=== PATIENT | female | born 1950 | race Caucasian/White ===

== ENCOUNTER 2017-06-13 10:17 | Inpatient (IN) | payer OTHER ==
[~2017-06-13] VITALS: Ht 177.8 cm; Wt 226.8 kg
[~2017-06-13 10:17] MED LIST: ATENOLOL50 MG; CLOTRIMAZOLE-BE15 G1 TOP; COZAAR100 MG; FUROSEMIDE20 MG; FUROSEMIDE20 MG PO; Glucophage PO; LEVAQUIN750 MG PO; LOSARTAN POTASS25 MG PO; MEDROL4 MG PO; METFORMIN HCL500 MG; PRE PROTEIN 2030 ML PO; PROTONIX40 MG; TOPROL XL25 MG PO; TRAM1TAB98 PO; XARELTO20 MG; XARELTO20 MG PO
[2017-06-13] MEDS ORDERED: XOPENEX HFA15 GM (10:52)
[2017-06-29] MEDS ORDERED: PROTEINEX1 TA1 PO (10:17)
[2017-06-29] MEDS ORDERED: TOPROL XL25 M1 PO (10:17)
== END 2017-06-29 14:04 | disposition home or self-care (01) | DRG 190 ==
LOC: ER 10:17 → ICU-2 16:45 → ICU 06-19 13:13 → MEDI 06-24 11:00 → MEDJ 06-24 11:00
PROC: 5A09557 Assistance with Respiratory Ventilation, Greater than 96 Consecutive Hours, Continuous Positive Airway Pressure (ICD-10-PCS; principal; 2017-06-13)
PROC: 3E0F7GC Introduction of Other Therapeutic Substance into Respiratory Tract, Via Natural or Artificial Opening (ICD-10-PCS; 2017-06-13)
PROC: 4A033R1 Measurement of Arterial Saturation, Peripheral, Percutaneous Approach (ICD-10-PCS; 2017-06-13)
PROC: 05H433Z Insertion of Infusion Device into Left Innominate Vein, Percutaneous Approach (ICD-10-PCS; 2017-06-15)
PROC: 4A12X4Z Monitoring of Cardiac Electrical Activity, External Approach (ICD-10-PCS; 2017-06-24)
DX: J44.1 Chronic obstructive pulmonary disease with (acute) exacerbation (principal); J96.02 Acute respiratory failure with hypercapnia; E66.2 Morbid (severe) obesity with alveolar hypoventilation; E11.65 Type 2 diabetes mellitus with hyperglycemia; Z74.01 Bed confinement status; I48.0 Paroxysmal atrial fibrillation; I11.9 Hypertensive heart disease without heart failure; I87.2 Venous insufficiency (chronic) (peripheral); I95.89 Other hypotension; S80.821A Blister (nonthermal), right lower leg, initial encounter

== ENCOUNTER 2017-10-20 13:02 | Emergency (ER) | payer OTHER ==
[~2017-10-20] VITALS: Ht 177.8 cm; Wt 158.8 kg
[~2017-10-20 13:02] MED LIST changes: +PROTEINEX1 TA1 PO; +TOPROL XL25 M1 PO; +XOPENEX HFA15 GM
[2017-10-20] MEDS ORDERED: COZAAR (13:12)
[2017-10-20] MEDS ORDERED: SINGULAIR 10MG10 MG (13:12)
[2017-10-21] MEDS ORDERED: DOXYCYCLINE HY100 M2 PO (08:21)
== END 2017-10-21 13:54 | disposition home or self-care (01) ==
LOC: ER 13:02
DX: L03.116 Cellulitis of left lower limb (principal); L03.115 Cellulitis of right lower limb; M79.602 Pain in left arm

== ENCOUNTER 2017-12-21 13:19 | Emergency (ER) | payer OTHER ==
[~2017-12-21] VITALS: Ht 177.8 cm; Wt 131.5 kg
[~2017-12-21 13:19] MED LIST changes: +COZAAR; +DOXYCYCLINE HY100 M2 PO; +SINGULAIR 10MG10 MG
== END 2017-12-22 09:43 | disposition home or self-care (01) ==
LOC: ER 13:19
DX: J09.X2 Influenza due to identified novel influenza A virus with other respiratory manifestations (principal)

== ENCOUNTER 2018-01-29 12:12 | Inpatient (IN) | payer OTHER ==
[~2018-01-29] VITALS: Ht 177.8 cm; Wt 131.5 kg
--- NOTE | 2018-01-29 12:27 | NUR ---
SE RECIBE PTE EN AMBULANCIA Y REFIERE TENER CELULITIS EN AMBAS PIERNAS DESDE EL JENNIFER Y CON DOLOR DE ESPALDA.
--- NOTE | 2018-01-29 13:35 | NUR ---
MS ROBLES ORIENTA A PACIENTE SOBRE ORDENES MEDICAS. COLECTA MUESTRAS DE LABORATORIO ORDENADAS BAJO MEDIDAS ASEPTICAS. PENDIENTE A RESULTADOS DE LABORATORIO PARA RE-EVALUACION MEDICA.
--- NOTE | 2018-01-29 15:30 | NUR ---
SE RECIBE PTE ALERTA Y ORIENTADA EN LAS 3 ESFERAS EN CAMA CON BARANDAS ELEVADAS POR SEGURIDAD. PTE RESPIRA SIN DIFICULTAD Y NO REFIERE SENTIR DOLOR. H/L, AREA LINDA DE EDEMA Y ERITEMA. PENDIENTE RE-EVALUACION MEDICA.
[2018-02-03] MEDS ORDERED: COZAAR25 MG PO (15:58)
[2018-02-25] MEDS ORDERED: THEOCHRON200 MG PO (09:52)
[2018-02-25] MEDS ORDERED: FLOVENT DISKU100 MCG IH (09:52)
[2018-02-25] MEDS ORDERED: XOPENEX0.63 MG/3 IH (09:54)
== END 2018-02-25 16:10 | disposition home or self-care (01) | DRG 299 ==
LOC: ER 12:12 → SEC-K 19:21 → MEDI 19:21 → MEDJ 01-30 02:40 → MEDI 01-30 03:11 → MEDJ 02-20 10:49
PROVIDERS: ADMIT Internal Medicine
PROC: B54DZZZ Ultrasonography of Bilateral Lower Extremity Veins (ICD-10-PCS; principal; 2018-01-29)
PROC: 3E0F7GC Introduction of Other Therapeutic Substance into Respiratory Tract, Via Natural or Artificial Opening (ICD-10-PCS; 2018-01-29)
PROC: 4A033R1 Measurement of Arterial Saturation, Peripheral, Percutaneous Approach (ICD-10-PCS; 2018-01-29)
PROC: 02HV33Z Insertion of Infusion Device into Superior Vena Cava, Percutaneous Approach (ICD-10-PCS; 2018-01-30)
DX: I87.2 Venous insufficiency (chronic) (peripheral) (principal); E11.10 Type 2 diabetes mellitus with ketoacidosis without coma; L03.116 Cellulitis of left lower limb; E66.2 Morbid (severe) obesity with alveolar hypoventilation; J45.31 Mild persistent asthma with (acute) exacerbation; J98.11 Atelectasis; N39.0 Urinary tract infection, site not specified; L03.115 Cellulitis of right lower limb; J44.1 Chronic obstructive pulmonary disease with (acute) exacerbation; I11.9 Hypertensive heart disease without heart failure; R42 Dizziness and giddiness; B96.29 Other Escherichia coli [E. coli] as the cause of diseases classified elsewhere; E11.65 Type 2 diabetes mellitus with hyperglycemia; I95.89 Other hypotension; R60.0 Localized edema; Z74.01 Bed confinement status; Z79.01 Long term (current) use of anticoagulants; J10.1 Influenza due to other identified influenza virus with other respiratory manifestations

== ENCOUNTER 2019-12-03 11:34 | Inpatient (IN) | payer OTHER ==
[~2019-12-03] VITALS: Ht 152.4 cm; Wt 117.9 kg
[~2019-12-03 11:34] MED LIST changes: +COZAAR25 MG PO; +FLOVENT DISKU100 MCG IH; +THEOCHRON200 MG PO; +XOPENEX0.63 MG/3 IH
--- NOTE | 2019-12-03 12:00 | NUR ---
PACIENTE ALERTA Y ORIENTADA EN JYOTI PAUL ESFERAS, LLEGA A ER CON DIFICULTAD RESPIRATORIA E HIPOACTIVA, CUIDADORA REFIERE QUE EN LA ULTIMA SEMANA LA PACIENTE ALSTON ESTADO INAPETENTE, CON DEBILIDAD Y CANSANCIO. PARAMEDICOS REFIEREN SATURACION EN 90% EN AMBIENTE.
--- NOTE | 2019-12-03 12:30 | NUR ---
PACIENTE ALERTA Y ORIENTADA EN JYOTI PAUL ESFERAS, ES ORIENTADA SOBRE ORDENES MEDICAS, REFIERE ENTENDER. SE CANALIZA VENA Y SE COLECTAN MUESTRAS DE LABORATORIO, SE REALIZA EKG QUE PRESENTA FIBRILACION ATRIAL CON RESPUESTA VENTRICULAR RAPIDA, LAUREEN RENTA INTERPRETA EKG. PACIENTE CONECTADA A MONITOR CARDIACO Y SATUROMETRO REGISTRANDO 100% DE SPO2 CON CANULA NASAL A 3 LT.
--- NOTE | 2019-12-03 15:00 | NUR ---
SE RECIBE DE TURNOANTERIOR FEMINA DE 59 ANOS,SONOLIENTA,EN COMPANIA DE FAMILIARES. UBICADA EN AREA DE CHEST PAIN,AURELIA #[id number]. CONECTADA A MONITOR CARDIACO,OXIMETRIA DE PULSO CONTINUA. SATURANDO AL 96%. VENOPUNCIONES PATENTES EN BRAZO IZQUIERDOM,LIMPIO,SECO,LINDA DE S/S EDEMA Y/O ERITEMA. RECIBIENDO TRIDIL @ 3ML/HR. DR.MUNOZ HUANGCTO PASA VISITA A PACIENTE. 3:10PM DA ORDEN DE INTUBACION A PACIENTE EL CUAL ES NOTIFICADO A PEROSNAL DE ANESTESIA,TERAPIA RESPIRATORIA.SR.ALAN HOLLEY INTUBA PACIENTE OROTRAQUEAL CON TUBO #7 DEN 22. ASISTE EN PROCEDIMIENTO LLEVADO A CABO.
[2019-12-05] MEDS ORDERED: FUROSEMIDE40 MG (07:54)
[2019-12-05] MEDS ORDERED: WIXELA 250-501 EACH (07:54)
[2019-12-05] MEDS ORDERED: LOSARTAN POTASS50 MG (07:54)
[2019-12-05] MEDS ORDERED: PANTOPRAZOLE SO40 MG (07:55)
[2019-12-05] MEDS ORDERED: SILVER SULFADIA50 GM (07:55)
[2019-12-05] MEDS ORDERED: ROSUVASTATIN CA20 MG (07:56)
[2019-12-05] MEDS ORDERED: THEOPHYLLINE A300 M1 (07:56)
== END 2020-01-27 13:37 | disposition home health service (06) | DRG 3 ==
LOC: ER 11:34 → ICU 16:12 → ICU-2 16:12 → ICU 12-07 22:00 → MEDJ 01-23 13:24
PROVIDERS: Surgery; ADMIT Internal Medicine; ATTEND Internal Medicine
PROC: 5A1955Z Respiratory Ventilation, Greater than 96 Consecutive Hours (ICD-10-PCS; 2019-12-03)
PROC: 0BH17EZ Insertion of Endotracheal Airway into Trachea, Via Natural or Artificial Opening (ICD-10-PCS; 2019-12-03)
PROC: 06H033Z Insertion of Infusion Device into Inferior Vena Cava, Percutaneous Approach (ICD-10-PCS; 2019-12-03)
PROC: 5A2204Z Restoration of Cardiac Rhythm, Single (ICD-10-PCS; 2019-12-04)
PROC: B24BZZZ Ultrasonography of Heart with Aorta (ICD-10-PCS; 2019-12-04)
PROC: 8E0ZXY6 Isolation (ICD-10-PCS; 2019-12-12)
PROC: 30233N1 Transfusion of Nonautologous Red Blood Cells into Peripheral Vein, Percutaneous Approach (ICD-10-PCS; 2019-12-19)
PROC: 0CQ0XZZ Repair Upper Lip, External Approach (ICD-10-PCS; 2019-12-30)
PROC: 0B110F4 Bypass Trachea to Cutaneous with Tracheostomy Device, Open Approach (ICD-10-PCS; principal; 2019-12-30 11:15)
PROC: 0JB70ZZ Excision of Back Subcutaneous Tissue and Fascia, Open Approach (ICD-10-PCS; 2020-01-20)
PROC: 4A12X4Z Monitoring of Cardiac Electrical Activity, External Approach (ICD-10-PCS; 2020-01-23)
DX: J96.02 Acute respiratory failure with hypercapnia (principal); L89.153 Pressure ulcer of sacral region, stage 3; I50.23 Acute on chronic systolic (congestive) heart failure; R65.21 Severe sepsis with septic shock; R57.0 Cardiogenic shock; A41.9 Sepsis, unspecified organism; J15.1 Pneumonia due to Pseudomonas; N39.0 Urinary tract infection, site not specified; I47.2 Ventricular tachycardia; J96.01 Acute respiratory failure with hypoxia; J43.8 Other emphysema; I11.0 Hypertensive heart disease with heart failure; G47.33 Obstructive sleep apnea (adult) (pediatric); E11.65 Type 2 diabetes mellitus with hyperglycemia; I48.91 Unspecified atrial fibrillation; I89.0 Lymphedema, not elsewhere classified; Z74.01 Bed confinement status; Z99.81 Dependence on supplemental oxygen; E66.01 Morbid (severe) obesity due to excess calories; F32.89 Other specified depressive episodes; F43.23 Adjustment disorder with mixed anxiety and depressed mood; D64.9 Anemia, unspecified; L89.892 Pressure ulcer of other site, stage 2; J39.8 Other specified diseases of upper respiratory tract; E87.6 Hypokalemia; B96.29 Other Escherichia coli [E. coli] as the cause of diseases classified elsewhere; S01.511A Laceration without foreign body of lip, initial encounter; Z20.828 Contact with and (suspected) exposure to other viral communicable diseases